=== PATIENT | female | born 1985 | race Caucasian/White ===

== ENCOUNTER 2019-09-18 14:34 | Emergency (ER) | payer MEDICAID ==
[~2019-09-18] VITALS: Ht 167.6 cm; Wt 54.9 kg
[2019-09-18 14:40] VITALS: BP 127/80; Ht 167.6 cm; Wt 54.9 kg
== END 2019-09-18 18:22 | disposition home or self-care (01) ==
LOC: ED 14:34
DX: M79.662 Pain in left lower leg (principal)
CPT/HCPCS: J1885